=== PATIENT | female | born 1990 | race Caucasian/White ===

== ENCOUNTER 2018-04-27 23:02 | Emergency (ER) | payer SELFPAY ==
[~2018-04-27] VITALS: Ht 177.8 cm; Wt 100.0 kg
[2018-04-28] MEDS ORDERED: KETOROLAC 30MG/ML VIAL IV STA (02:49)
[2018-04-28] MEDS ORDERED: SODIUM CHLORIDE 0.9% 1,000 ML IV ONE (02:49)
[2018-04-28] MEDS ORDERED: ONDANSETRON HCL 4MG/2ML INJ IV STA (02:49)
[2018-04-28 03:13] LABS: HCG SCREEN NEGATIVE
[2018-04-28 03:16] LABS: CHLORIDE 104 mEq/L (98-107)
[2018-04-28 03:23] LABS: BASOPHILS % 0.3 % (0.0-2.0); HEMATOCRIT. 37.4 % (36.0-48.0); HEMOGLOBIN. 12.9 g/dL (12.0-16.0); LYMPHOCYTES % 32.8 % (20.0-50.0); MEAN CORPUSCULAR HEMOGLOBIN 29.9 pg (28.0-32.0); MEAN CORPUSCULAR VOLUME 87.1 fL (81.0-99.0); MEAN PLATELET VOLUME 8.1 fl (7.4-10.4); MONOCYTES % 7.2 % (2.0-8.0); NEUTROPHILS % 53.7 % (40.0-76.0); PLATELET 207 x1000/uL (130-400); RED BLOOD CELL COUNT 4.29 mill/uL (4.2-5.4); RED CELL DISTRIBUTION WIDTH 13.6 % (11.6-14.6)
[2018-04-28 04:52] LABS: CLARITY URINE CLEAR (CLEAR); COLOR URINE YELLOW (YELLOW); KETONES URINE NEGATIVE (NEGATIVE); LEUKOCYTE ESTERASE URINE NEGATIVE (NEGATIVE); NITRITE URINE NEGATIVE (NEGATIVE); OCCULT BLOOD URINE NEGATIVE (NEGATIVE); PROTEIN URINE NEGATIVE (NEGATIVE); UROBILINOGEN URINE 0.2 E.U./dL (0.2-1.0)
[2018-04-28] MEDS ORDERED: FLUCONAZOLE 100MG TABLET PO ONE (06:00)
[2018-04-28] MEDS ORDERED: FLUCONAZOLE 50MG TABLET PO ONE (06:00)
[2018-04-28 07:05] VITALS: BP 110/62
== END 2018-04-28 07:30 | disposition home or self-care (01) ==
LOC: ER 23:02
DX: B37.3 Candidiasis of vulva and vagina (principal); R10.30 Lower abdominal pain, unspecified; N83.201 Unspecified ovarian cyst, right side; Z90.49 Acquired absence of other specified parts of digestive tract
CPT/HCPCS: 36415; 76830; 76856; 80053; 81003; 81025; 83690; 84703; 85025; 96361; 96374; 96375; 99285; J1885; J2405; J7030